=== PATIENT | male | born 2000 | race Caucasian/White ===

== ENCOUNTER 2023-02-11 18:15 | Emergency (ER) | payer OTHER ==
[~2023-02-11] VITALS: Ht 177.8 cm; Wt 76.2 kg
[2023-02-11 20:26] LABS: BASOPHILS # (AUTO) 0.2 K/UL (0.0-0.2); BASOPHILS % (AUTO) 2.8 % (0.0-2.0); EOSINOPHILS # (AUTO) 0.2 K/uL (0.0-0.7); EOSINOPHILS % (AUTO) 2.5 % (0.0-7.0); HEMATOCRIT 50.9 % (36.7-47.1); HEMOGLOBIN 17.1 g/dL (12.5-16.3); LYMPHOCYTES # (AUTO) 1.2 K/uL (0.8-4.8); LYMPHOCYTES % (AUTO) 15.7 % (20.5-51.5); MEAN CORPUSCULAR HEMOGLOBIN 26.9 uug (23.8-33.4); MEAN CORPUSCULAR HGB CONC 34 g/dL (32.5-36.3); MEAN CORPUSCULAR VOLUME 80.2 fL (73.0-96.2); MONOCYTES # (AUTO) 0.5 K/uL (0.1-1.30); MONOCYTES % (AUTO) 7.2 % (0.0-11.0); NEUTROPHILS # (AUTO) 5.4 K/uL (1.8-8.9); NEUTROPHILS % (AUTO) 71.8 % (38.5-71.5); PLATELET COUNT (AUTO) 264 K/uL (152-348); RED BLOOD CELL COUNT(AUTO) 6.35 MIL/uL (4.06-5.63); RED CELL DISTRIBUTION WIDTH 13.3 % (12.1-16.2); WHITE BLOOD COUNT (AUTO) 7.6 K/uL (3.6-10.2)
[2023-02-11 20:28] LABS: DIFFERENTIAL COMMENT 1
[2023-02-11 20:33] LABS: CARBON DIOXIDE 30 mmol/L (21-32); CHLORIDE 104 mmol/L (98-107); CREATININE 0.9 mg/dL (0.6-1.3); GLUCOSE 114 mg/dL (74-106); POTASSIUM 3.3 mmol/L (3.5-5.1); SODIUM SERUM 142 mmol/L (136-145); UREA NITROGEN, BLOOD 18 mg/dL (7-18)
[2023-02-11 20:47] LABS: ALANINE AMINOTRANSFERASE 25 U/L (16-63); ALBUMIN 4.1 g/dL (3.4-5.0); ALKALINE PHOSPHATASE 87 U/L (50-136); ASPARTATE AMINOTRANSFERASE 17 U/L (15-37); BILIRUBIN,DIRECT 0.1 mg/dL (0.0-0.2); BILIRUBIN,TOTAL 0.3 mg/dL (0.2-1.0); TOTAL PROTEIN, SERUM 7.6 g/dL (6.4-8.2)
[2023-02-11 20:55] LABS: NT-PRO BNP 5 pg/mL (0-125)
[2023-02-11] MEDS ORDERED: HYDR-3980 PO (21:24)
[2023-02-11] MEDS ORDERED: PRED50TA PO (21:24)
[2023-02-11] MEDS ORDERED: predniSONE 50 MG TABLET PO ONE (21:30)
[2023-02-11] MEDS ORDERED: predniSONE 50 MG TABLET ONE (21:36)
[2023-02-11 21:47] VITALS: BP 129/77; O2SAT 96
[2023-02-11] MEDS ORDERED: HYDR-3976 PO (21:56)
== END 2023-02-11 21:48 | disposition home or self-care (01) ==
LOC: ER 18:18
DX: R09.1 Pleurisy (principal); Z79.899 Other long term (current) drug therapy; Z60.2 Problems related to living alone
CPT/HCPCS: 99285; 71045; 80076; 80048; 83880; 85025; 85379; 85730; 84484; 36415; 93005; J7512; A4606; A4663